=== PATIENT | male | born 1995 | race Caucasian/White ===

== ENCOUNTER 2016-12-29 00:53 | Observation (INO) | payer BC ==
[2016-12-29] MEDS ORDERED: ONDANSETRON HCL INJ/PF 4 MG/2 ML SDV IV ONE (01:41)
[2016-12-29] MEDS ORDERED: HYDROCORTISONE SOD SUCCINATE INJ/PF 100 MG/2 ML SDV IV ONE (01:42)
[2016-12-29] MEDS ORDERED: NORMAL SALINE 1000 ML 1,000 ML IV ONE ×2 (01:42→04:37)
--- NOTE | 2016-12-29 01:45 | ER Document Report ---
ED General - General Chief Complaint: Nausea/Vomiting Stated Complaint: VOMITING Time Seen by Provider: 12/29/16 01:36 Notes: Patient is a 21-year-old male who comes emergency department for chief complaint of nausea and vomiting 10-15 times today. He reports mild generalized abdominal pain with persistent nausea. He denies flank pain, fever , hematemesis or hematochezia. He has past medical history of adrenal insufficiency, he is currently visiting from [place]. He takes hydrocortisone 20 mg in the morning, 10 mg in the evening, takes fludrocortisone 0.2 mg every morning. He states he has not been able to take them since yesterday because of the vomiting. He states he has been trying to hydrate in between vomiting but he is worried because he has not stopped. He states he smokes marijuana occasionally, denies any other recreational drugs, denies other medical history. TRAVEL OUTSIDE OF THE [place] IN LAST 30 DAYS: No - Related Data Allergies/Adverse Reactions: Sulfa (Sulfonamide Antibiotics) Allergy (Verified 12/29/16 01:02) Past Medical History - General Information source: Patient - Social History Smoking Status: Never Smoker Drug Abuse: Marijuana Lives with: Family Family History: Reviewed & Not Pertinent Patient has suicidal ideation: No Patient has homicidal ideation: No Endocrine Medical History: Reports: Other - adrenal insufficiency Renal/ Medical History: Denies: Hx Peritoneal Dialysis Surgical Hx: Negative - Immunizations Immunizations up to date: Yes Hx Diphtheria, Pertussis, Tetanus Vaccination: Yes Review of Systems - Review of Systems Constitutional: No symptoms reported EENT: No symptoms reported Cardiovascular: No symptoms reported Respiratory: No symptoms reported Gastrointestinal: See HPI Genitourinary: No symptoms reported Male Genitourinary: No symptoms reported Musculoskeletal: No symptoms reported Skin: No symptoms reported Hematologic/Lymphatic: No symptoms reported Neurological/Psychological: No symptoms reported Physical Exam - Vital signs Vitals: Temp Pulse Resp BP Pulse Ox 98.6 F 72 18 147/84 H 100 12/29/16 00:59 12/29/16 00:59 12/29/16 00:59 12/29/16 00:59 12/29/16 00:59 Interpretation: Normal - General General appearance: Alert, Anxious In distress: Mild - patient vomiting when I entered room; appears tired - HEENT Head: Normocephalic, Atraumatic Eyes: Normal Conjunctiva: Normal Extraocular movements intact: Yes Eyelashes: Normal Pupils: PERRL Mouth/Lips: Normal Mucous membranes: Normal Pharynx: Normal Neck: Normal - Respiratory Respiratory status: No respiratory distress Chest status: Nontender Breath sounds: Normal Chest palpation: Normal - Cardiovascular Rhythm: Regular. No: Tachycardia Heart sounds: Normal auscultation, S1 appreciated, S2 appreciated Murmur: No - Abdominal Inspection: Normal Distension: No distension Bowel sounds: Normal Tenderness: Tender - mild generalized tenderness. No: McBurney's point, Velez' s sign, Guarding Organomegaly: No organomegaly - Back Back: Normal, Nontender. No: Tender, CVA tenderness - Extremities General upper extremity: Normal inspection, Nontender, Normal color, Normal ROM , Normal temperature General lower extremity: Normal inspection, Nontender, Normal color, Normal ROM , Normal temperature, Normal weight bearing. No: Becky's sign - Neurological Neuro grossly intact: Yes Cognition: Normal Orientation: AAOx4 [place] Coma Scale Eye Opening: Spontaneous [place] Coma Scale Verbal: Oriented [place] Coma Scale Motor: Obeys Commands Gladis Coma Scale Total: 15 Speech: Normal Motor strength normal: LUE, RUE, LLE, RLE Sensory: Normal - Psychological Associated symptoms: Normal affect, Normal mood - Skin Skin Temperature: Warm Skin Moisture: Dry Skin Color: Normal Course - Re-evaluation Re-evalutation: Patient does look uncomfortable on initial evaluation, he was vomiting when I entered the room. Generalized mild abdominal tenderness but no guarding or rigidity. No tachycardia, hypotension, or fever. CBC, chemistry, urinalysis are still surprisingly normal in appearance. I asked patient if he uses any recreational drugs, he states he smokes marijuana once or twice a week, denies additional use. Drug screen performed, shows only marijuana. Additional medications will be given. 12/29/16 05:45 Patient has intractable vomiting. He vomited after Zofran, Benadryl, morphine, and after IM Phenergan. I did see patient vomit, he is not gagging. He has been given 2 L of IV fluids. He was given Solu-Cortef. Patient was discussed with Dr. Trevizo before IM phenergan. Recommends admission for adrenal insufficiency history and intractable vomiting. 12/29/16 07:[address] Garsia, patient will be admitted to telemetry observation. - Vital Signs Vital signs: Temp Pulse Resp BP Pulse Ox 98.6 F 72 18 141/67 H 99 12/29/16 00:59 12/29/16 00:59 12/29/16 00:59 12/29/16 06:46 12/29/16 06:46 - Laboratory Result Diagrams: 12/29/16 02:02 12/29/16 02:02 Laboratory results interpreted by me: 12/29/16 12/29/16 02:02 02:08 Chloride 108 H BUN 5 L Urine Ketones TRACE H Discharge - Discharge Clinical Impression: Intractable vomiting Qualifiers: Vomiting type: unspecified Nausea presence: with nausea Qualified Code(s): R11.2 - Nausea with vomiting, unspecified Abdominal pain Qualifiers: Abdominal location: generalized Qualified Code(s): R10.84 - Generalized abdominal pain Condition: Stable Disposition: ADMITTED OBSERVATION Admitting Provider: Hospitalist Unit Admitted: Telemetry
[2016-12-29 02:16] LABS: ABSOLUTE EOSINOPHILS # (AUTO) 0.1 10^3/uL (0.0-0.6); ABSOLUTE LYMPHOCYTES (AUTO) 3.7 10^3/uL (0.5-4.7); ABSOLUTE MONOCYTES (AUTO) 0.9 10^3/uL (0.1-1.4); ABSOLUTE NEUT (AUTO) 4.6 10^3/uL (1.7-8.2); BASOPHILS % (AUTO) 0.5 % (0-2); EOSINOPHILS % (AUTO) 1.5 % (0-6); HEMATOCRIT 40.9 % (37.9-51.0); HGB HCT DIFFERENCE 1.1; LYMPHOCYTES % (AUTO) 39.7 % (13-45); MEAN CORPUSCULAR HEMOGLOBIN 29.2 pg (27.0-33.4); MEAN CORPUSCULAR HGB CONC 34.2 g/dL (32.0-36.0); MEAN CORPUSCULAR VOLUME 85 fl (80-97); MONOCYTES % (AUTO) 9.1 % (3-13); RED BLOOD COUNT 4.79 10^6/uL (4.35-5.55); RED CELL DISTRIBUTION WIDTH 13.5 % (11.5-14.0); SEGMENTED NEUTROPHILS % (AUTO) 49.2 % (42-78); WHITE BLOOD COUNT 9.4 10^3/uL (4.0-10.5)
[2016-12-29 02:26] LABS: ALANINE AMINOTRANSFERASE 22 U/L (21-72); ALBUMIN 4.5 g/dL (3.5-5.0); ALKALINE PHOSPHATASE 79 U/L (38-126); ANION GAP 12 (5-19); ASPARTATE AMINO TRANSFERASE 19 U/L (17-59); BILIRUBIN,DIRECT 0.4 mg/dL (0.0-0.4); BLOOD UREA NITROGEN 5 mg/dL (7-20); CALCIUM 9.5 mg/dL (8.4-10.2); CARBON DIOXIDE 22 mmol/L (22-30); CHLORIDE 108 mmol/L (98-107); CREATININE RESULT 0.73 mg/dL (0.52-1.25); GLUCOSE 92 mg/dL (75-110); POTASSIUM 3.8 mmol/L (3.6-5.0); SODIUM 142.3 mmol/L (137-145); TOTAL PROTEIN 7.6 g/dL (6.3-8.2)
[2016-12-29 02:36] LABS: APPEARANCE,URINE CLEAR; BILIRUBIN,URINE NEGATIVE (NEGATIVE); GLUCOSE, URINE NEGATIVE (NEGATIVE); KETONES,URINE TRACE mg/dL (NEGATIVE); LEUKOCYTE ESTERASE,URINE NEGATIVE (NEGATIVE); NITRITE,URINE NEGATIVE (NEGATIVE); PROTEIN,URINE NEGATIVE (NEGATIVE); URINE SPECIFIC GRAVITY 1.012; UROBILINOGEN,URINE NEGATIVE mg/dL (<2.0)
[2016-12-29] MEDS ORDERED: MORPHINE SULFATE 10 MG/ML INJ IV ONE (02:37)
[2016-12-29] MEDS ORDERED: DIPHENHYDRAMINE HCL 50 MG/ML VIAL IV ONE (03:48)
[2016-12-29 04:31] LABS: URINE BARBITURATES SCREEN NEGATIVE; URINE METHADONE SCREEN NEGATIVE; URINE OPIATES LOW NEGATIVE; URINE PHENCYCLIDINE SCREEN NEGATIVE
[2016-12-29] MEDS ORDERED: PROMETHAZINE HCL INJ 25 MG/1 ML VIAL IM ONE (04:40)
[2016-12-29] MEDS ORDERED: ONDANSETRON HCL INJ/PF 4 MG/2 ML SDV IV PRN (07:46)
[2016-12-29] MEDS: ONDANSETRON HCL INJ/PF 4 MG/2 ML SDV IV PRN ×2 (08:46→14:34)
[2016-12-29] MEDS ORDERED: SCOPOLAMINE HYDROBROMIDE 1.5 MG PATCH.TD72 TD ONE (09:00)
[2016-12-29] MEDS ORDERED: ENOXAPARIN SODIUM INJ 40 MG/0.4 ML DISP.SYRIN SUBCUT SCH (10:00)
[2016-12-29] MEDS ORDERED: KETOROLAC TROMETHAMINE INJ/PF 30 MG/1 ML SDV IV PRN (10:16)
[2016-12-29] MEDS ORDERED: LIDOCAINE 2% VISCOUS SOLN 20 ML UDCUP PO ONE ×2 (11:00→15:14)
[2016-12-29] MEDS ORDERED: MAG HYDROX/AL HYDROX/SIMETH SUSP 30 ML UDCUP PO ONE ×2 (11:00→15:14)
[2016-12-29] MEDS ORDERED: METOCLOPRAMIDE HCL ORAL SOLN 10 MG/10 ML UDCUP PO ONE ×2 (11:00→15:14)
[2016-12-29 11:22] VITALS: BP 136/72
--- NOTE | 2016-12-29 14:19 | RADIOLOGY REPORT (SQ) ---
EXAM DESCRIPTION: CT ABD/PELVIS NO ORAL OR IV COMPLETED DATE/TIME: 12/29/2016 1:59 pm REASON FOR STUDY: Intractable pain COMPARISON: None. TECHNIQUE: CT scan of the abdomen and pelvis performed without intravenous or oral contrast. Images reviewed with lung, soft tissue, and bone windows. Reconstructed coronal and sagittal MPR images revi ewed. All images stored on PACS. All CT scanners at this facility use dose modulation, iterative reconstruction, and/or weight based d osing when appropriate to reduce radiation dose to as low as reasonably achievable (ALARA). [facility]: Dose Right [facility]: CareDose [facility]: Dose Right [facility]: Teradose 4D [facility]: Smart Localmint RADIATION DOSE: Up-to-date CT equipment and radiation dose reduction techniques were employed. CTDIv ol: 3.9 mGy. DLP: 210 mGy-cm.mGy. LIMITATIONS: None. FINDINGS: LOWER CHEST: No significant findings. No nodules or infiltrates. NON-CONTRASTED LIVER, SPLEEN, ADRENALS: Evaluation limited by lack of IV contrast. No identified sign ificant masses. Adrenal glands are mildly diffusely enlarged, without focal nodules. Patient has a history of adrenal insufficiency. PANCREAS: No masses. No peripancreatic inflammatory changes. GALLBLADDER: No identified stones by CT criteria. No inflammatory changes to suggest cholecystitis. RIGHT KIDNEY AND URETER: No suspicious masses. Assessment limited by lack of IV contrast. No signif icant calcifications. No hydronephrosis or hydroureter. LEFT KIDNEY AND URETER: No suspicious masses. Assessment limited by lack of IV contrast. No signifi cant calcifications. No hydronephrosis or hydroureter. AORTA AND RETROPERITONEUM: No aneurysm. No retroperitoneal masses or adenopathy. BOWEL AND PERITONEAL CAVITY: No obvious masses or inflammatory changes. No free fluid. APPENDIX: Normal. PELVIS, BLADDER, AND ABDOMINAL WALL:No abnormal masses. No free fluid. Bladder normal. BONES: No significant findings. OTHER: Results discussed with Stephen Garsia IMPRESSION: NO SIGNIFICANT OR ACUTE PROCESS IN THE ABDOMEN OR PELVIS. TECHNICAL DOCUMENTATION: JOB ID: [id number] Quality ID # [id number]: Final reports with documentation of one or more dose reduction techniques (e.g., Au tomated exposure control, adjustment of the mA and/or kV according to patient size, use of iterative reconstruction technique) 2010 [employer]- All Rights Reserved
--- NOTE | 2016-12-29 16:49 | H&P/Discharge Summary ---
Discharge Summary Admission Date/PCP: 12/29/16 07:46 Discharge Date: 12/29/16 Resuscitation Status: Full Code - Discharge Diagnosis (1) Nausea & vomiting Is this a current diagnosis for this admission?: Yes (2) Adrenal insufficiency Is this a current diagnosis for this admission?: Yes (3) Marijuana abuse Is this a current diagnosis for this admission?: Yes (4) Suboxone Use Is this a current diagnosis for this admission?: Yes Allergies/Adverse Reactions: Sulfa (Sulfonamide Antibiotics) Allergy (Verified 12/29/16 01:02) Discharge Diet: As Tolerated Discharge Activity: Activity As Tolerated History of Present Illness Admission Date/PCP: 12/29/16 07:46 History of Present Illness: SO STEELE is a 21 year old male who presented to the emergency department for chief complaint of nausea and vomiting 10-15 times today. The patient noted mild generalized abdominal pain with persistent nausea. The patient denies flank pain, fever, hematemesis or hematochezia. The patient has past medical history of adrenal insufficiency, he has relocated from [place]. The patient stated that he has been trying to hydrate in between vomiting but he is worried because he has not stopped. He states he smokes marijuana. HOSPITAL COURSE: [facility] of the abdomen and pelvis was unremarkable. The patient was given a GI cocktail and was found sleeping afterwards. When awakened the patient stated his pain was unbearable. The patient was cordial however when in conversation. When distracted the patient is in no distress. The patient stated that he had had a previous hospital visit in [place] when he had a complete work up including EGD. The patient stated that he has these bouts of vomiting and no one can determine the source. The patient is defensive when suggested marijuana may be contributing. I made it clear that the patient's labs, vital signs, were not reflective of 24 -48 hours of relentless vomiting. The patient is agreeable to discharge and instructed to refrain from substances. Past Medical History Endocrine Medical History: Reports: Other - Adrenal insufficiency GI Medical History: Reports: Other - Previous admission for nausea and vomiting Past Surgical History Past Surgical History: Reports: Other - EGD in 2017-Unremarkable Social History Information Source: Patient Occupation: Works at [employer] Lives with: Family Smoking Status: Current Every Day Smoker Cigarettes Packs Per Day: 1 Number of Years Smokin Last Time Smoked: 12/29/2016 Frequency of Alcohol Use: Occasional Hx Recreational Drug Use: Yes Drugs: Marijuana Hx Prescription Drug Abuse: Yes - Opiates/Suboxone - Advance Directive Resuscitation Status: Full Code Surrogate healthcare decision maker:: Father Family History Family History: Reviewed & Not Pertinent Parental Family History Reviewed: Yes Children Family History Reviewed: NA Sibling(s) Family History Reviewed.: NA Review of Systems Constitutional: ABSENT: chills, fever(s), headache(s), weight gain, weight loss Eyes: ABSENT: visual disturbances Ears: ABSENT: hearing changes Cardiovascular: ABSENT: chest pain, dyspnea on exertion, edema, orthropnea, palpitations Respiratory: ABSENT: cough, hemoptysis Gastrointestinal: PRESENT: abdominal pain, nausea, vomiting. ABSENT: constipation, diarrhea, hematemesis, hematochezia, melena Genitourinary: ABSENT: dysuria, hematuria Musculoskeletal: ABSENT: joint swelling Integumentary: ABSENT: rash, wounds Neurological: ABSENT: abnormal gait, abnormal speech, confusion, dizziness, focal weakness, syncope Psychiatric: ABSENT: anxiety, depression, homidical ideation, suicidal ideation Endocrine: ABSENT: cold intolerance, heat intolerance, polydipsia, polyuria Hematologic/Lymphatic: ABSENT: easy bleeding, easy bruising Physical Exam Vital Signs: Temp Pulse Resp BP Pulse Ox 98.8 F 108 H 16 136/72 H 99 12/29/16 14:00 12/29/16 14:00 12/29/16 14:00 12/29/16 14:00 12/29/16 14:00 Intake & Output 12/27/16 12/28/16 12/29/16 23:59 23:59 23:59 Intake Total 145 Output Total 0 Balance 145 Weight 72.575 kg General appearance: PRESENT: no acute distress, well-developed, well-nourished Head exam: PRESENT: atraumatic, normocephalic Eye exam: PRESENT: conjunctiva pink, EOMI, PERRLA. ABSENT: scleral icterus Ear exam: PRESENT: normal external ear exam Mouth exam: PRESENT: moist, tongue midline Neck exam: ABSENT: carotid bruit, JVD, lymphadenopathy, thyromegaly Respiratory exam: PRESENT: clear to auscultation jef. ABSENT: rales, rhonchi, wheezes Cardiovascular exam: PRESENT: RRR. ABSENT: diastolic murmur, rubs, systolic murmur Pulses: PRESENT: normal dorsalis pedis pul Vascular exam: PRESENT: normal capillary refill GI/Abdominal exam: PRESENT: normal bowel sounds, soft. ABSENT: distended, guarding, mass, organolmegaly, rebound, tenderness Rectal exam: PRESENT: deferred Extremities exam: PRESENT: full ROM. ABSENT: calf tenderness, clubbing, pedal edema Neurological exam: PRESENT: alert, awake, oriented to person, oriented to place , oriented to time, oriented to situation, CN II-XII grossly intact. ABSENT: motor sensory deficit Psychiatric exam: PRESENT: appropriate affect, normal mood. ABSENT: homicidal ideation, suicidal ideation Skin exam: PRESENT: dry, intact, warm. ABSENT: cyanosis, rash Results Laboratory Results: Labs- Last Values WBC 9.4 10^3/uL (4.0-10.5) 12/29/16 02:02 RBC 4.79 10^6/uL (4.35-5.55) 12/29/16 02:02 Hgb 14.0 g/dL (13.5-17.0) 12/29/16 02:02 Hct 40.9 % (37.9-51.0) 12/29/16 02:02 MCV 85 fl (80-97) 12/29/16 02:02 MCH 29.2 pg (27.0-33.4) 12/29/16 02:02 MCHC 34.2 g/dL (32.0-36.0) 12/29/16 02:02 RDW 13.5 % (11.5-14.0) 12/29/16 02:02 Plt Count 217 10^3/uL (150-450) 12/29/16 02:02 Seg Neutrophils % 49.2 % (42-78) 12/29/16 02:02 Lymphocytes % 39.7 % (13-45) 12/29/16 02:02 Monocytes % 9.1 % (3-13) 12/29/16 02:02 Eosinophils % 1.5 % (0-6) 12/29/16 02:02 Basophils % 0.5 % (0-2) 12/29/16 02:02 Absolute Neutrophils 4.6 10^3/uL (1.7-8.2) 12/29/16 02:02 Absolute Lymphocytes 3.7 10^3/uL (0.5-4.7) 12/29/16 02:02 Absolute Monocytes 0.9 10^3/uL (0.1-1.4) 12/29/16 02:02 Absolute Eosinophils 0.1 10^3/uL (0.0-0.6) 12/29/16 02:02 Absolute Basophils 0.0 10^3/uL (0.0-0.2) 12/29/16 02:02 Sodium 142.3 mmol/L (137-145) 12/29/16 02:02 Potassium 3.8 mmol/L (3.6-5.0) 12/29/16 02:02 Chloride 108 mmol/L (98-107) H 12/29/16 02:02 Carbon Dioxide 22 mmol/L (22-30) 12/29/16 02:02 Anion Gap 12 (5-19) 12/29/16 02:02 BUN 5 mg/dL (7-20) L 12/29/16 02:02 Creatinine 0.73 mg/dL (0.52-1.25) 12/29/16 02:02 Est GFR ( Amer) > 60 (>60) 12/29/16 02:02 Est GFR (Non-Af Amer) > 60 (>60) 12/29/16 02:02 Glucose 92 mg/dL (75-110) 12/29/16 02:02 Calcium 9.5 mg/dL (8.4-10.2) 12/29/16 02:02 Total Bilirubin 1.0 mg/dL (0.2-1.3) 12/29/16 02:02 Direct Bilirubin 0.4 mg/dL (0.0-0.4) 12/29/16 02:02 Indirect Bilirubin Not Reportable 12/29/16 02:02 Neonat Total Bilirubin Not Reportable 12/29/16 02:02 AST 19 U/L (17-59) 12/29/16 02:02 ALT 22 U/L (21-72) 12/29/16 02:02 Alkaline Phosphatase 79 U/L (38-126) 12/29/16 02:02 Total Protein 7.6 g/dL (6.3-8.2) 12/29/16 02:02 Albumin 4.5 g/dL (3.5-5.0) 12/29/16 02:02 Lipase 70.0 U/L (23-300) 12/29/16 02:02 Urine Color YELLOW 12/29/16 02:08 Urine Appearance CLEAR 12/29/16 02:08 Urine pH 7.0 (5.0-9.0) 12/29/16 02:08 Ur Specific [place] 1.012 12/29/16 02:08 Urine Protein NEGATIVE mg/dL (NEGATIVE) 12/29/16 02:08 Urine Glucose (UA) NEGATIVE mg/dL (NEGATIVE) 12/29/16 02:08 Urine Ketones TRACE mg/dL (NEGATIVE) H 12/29/16 02:08 Urine Blood NEGATIVE (NEGATIVE) 12/29/16 02:08 Urine Nitrite NEGATIVE (NEGATIVE) 12/29/16 02:08 Urine Bilirubin NEGATIVE (NEGATIVE) 12/29/16 02:08 Urine Urobilinogen NEGATIVE mg/dL (<2.0) 12/29/16 02:08 Ur Leukocyte Esterase NEGATIVE (NEGATIVE) 12/29/16 02:08 Urine WBC (Auto) 0 /HPF 12/29/16 02:08 Urine RBC (Auto) 0 /HPF 12/29/16 02:08 Urine Mucus (Auto) RARE /LPF 12/29/16 02:08 Urine Ascorbic Acid NEGATIVE (NEGATIVE) 12/29/16 02:08 Urine Opiates Screen NEGATIVE 12/29/16 02:08 Urine Methadone Screen NEGATIVE 12/29/16 02:08 Ur Barbiturates Screen NEGATIVE 12/29/16 02:08 Ur Phencyclidine Scrn NEGATIVE 12/29/16 02:08 Ur Amphetamines Screen NEGATIVE 12/29/16 02:08 U Benzodiazepines Scrn NEGATIVE 12/29/16 02:08 Urine Cocaine Screen NEGATIVE 12/29/16 02:08 U Marijuana (THC) Screen UNCONFIRMED POSITIVE 12/29/16 02:08 Impressions: Abdomen/Pelvis CT 12/29/16 00:00 IMPRESSION: NO SIGNIFICANT OR ACUTE PROCESS IN THE ABDOMEN OR PELVIS. Qualifiers PATEINT BEING DISCHARGED WITH ANY OF THE FOLLOWING DIAGNOSIS?: No Assessment & Plan - Time Time Spent: 50 to 70 Minutes Smoking Education Provided: Over 3 minutes Medications reviewed and adjusted accordingly: Yes Anticipated dischagre: Home - Plan Summary Plan Summary: The patient will be referred to GI for further work-up and evaluation.
== END 2016-12-29 17:39 | disposition home or self-care (01) ==
LOC: ER 00:53 → EH 07:46 → UNDOADMOB 07:52 → EH 07:52 → 4W 09:20
PROVIDERS: ADMIT Family Medicine; ATTEND Family Medicine
PROC: HZ31ZZZ Individual Counseling for Substance Abuse Treatment, Behavioral (ICD-10-PCS; principal; 2016-12-29)
DX: R11.2 Nausea with vomiting, unspecified (principal); E27.40 Unspecified adrenocortical insufficiency; F12.10 Cannabis abuse, uncomplicated; R10.84 Generalized abdominal pain; F17.210 Nicotine dependence, cigarettes, uncomplicated; F19.90 Other psychoactive substance use, unspecified, uncomplicated; Z79.52 Long term (current) use of systemic steroids
CPT/HCPCS: 99285; 96372; 96374; 96375; 36415; 83690; 85025; 80053; 81001; 80307; 74176; 99406; G0378 ×2; J1200; J1720; J3490 ×2; J1885; J2270; J1650; J2550; J2405

== ENCOUNTER 2016-12-30 16:47 | Observation (INO) | payer BC ==
[2016-12-30] MEDS ORDERED: ONDANSETRON HCL INJ/PF 4 MG/2 ML SDV IV ONE (18:16)
--- NOTE | 2016-12-30 18:18 | ER Document Report ---
ED Medical Screen (RME) - General Chief Complaint: Nausea/Vomiting Stated Complaint: VOMITING Time Seen by Provider: 12/30/16 18:15 Mode of Arrival: Ambulatory Information source: Patient Notes: Patient was discharged from here yesterday with intractable vomiting. Patient complains of nausea and vomiting for the past 3 days with 15 episodes today. Patient denies any diarrhea or fever. Patient complains of generalized abdominal pain that is worse to the upper epigastric area. hx: adrenal insufficiency TRAVEL OUTSIDE OF THE [place] IN LAST 30 DAYS: No - Related Data Allergies/Adverse Reactions: Sulfa (Sulfonamide Antibiotics) Allergy (Verified 12/30/16 16:56) Past Medical History - Social History Chew tobacco use (# tins/day): No Frequency of alcohol use: Occasional Drug Abuse: Marijuana Renal/ Medical History: Denies: Hx Peritoneal Dialysis Psychiatric Medical History: Denies: Hx Depression Past Surgical History: Reports: Other - EGD in 2017-Unremarkable - Immunizations Immunizations up to date: Yes Hx Diphtheria, Pertussis, Tetanus Vaccination: Yes Physical Exam - Vital signs Vitals: Temp Pulse Resp BP Pulse Ox 99.1 F 58 L 20 138/70 H 99 12/30/16 16:56 12/30/16 16:56 12/30/16 16:56 12/30/16 16:56 12/30/16 16:56 - Abdominal Tenderness: Tender - epigastric Course - Vital Signs Vital signs: Temp Pulse Resp BP Pulse Ox 99.1 F 58 L 20 138/70 H 99 12/30/16 16:56 12/30/16 16:56 12/30/16 16:56 12/30/16 16:56 12/30/16 16:56
[2016-12-30 19:11] LABS: ABSOLUTE EOSINOPHILS # (AUTO) 0.1 10^3/uL (0.0-0.6); ABSOLUTE LYMPHOCYTES (AUTO) 2.7 10^3/uL (0.5-4.7); ABSOLUTE MONOCYTES (AUTO) 0.8 10^3/uL (0.1-1.4); ABSOLUTE NEUT (AUTO) 4.9 10^3/uL (1.7-8.2); BASOPHILS % (AUTO) 0.3 % (0-2); EOSINOPHILS % (AUTO) 0.8 % (0-6); HEMATOCRIT 45.4 % (37.9-51.0); HEMOGLOBIN 15.2 g/dL (13.5-17.0); HGB HCT DIFFERENCE 0.2; LYMPHOCYTES % (AUTO) 31.8 % (13-45); MEAN CORPUSCULAR HEMOGLOBIN 29.3 pg (27.0-33.4); MEAN CORPUSCULAR HGB CONC 33.5 g/dL (32.0-36.0); MEAN CORPUSCULAR VOLUME 87 fl (80-97); RED CELL DISTRIBUTION WIDTH 13.1 % (11.5-14.0); SEGMENTED NEUTROPHILS % (AUTO) 58.1 % (42-78); WHITE BLOOD COUNT 8.4 10^3/uL (4.0-10.5)
[2016-12-30 20:16] LABS: ALANINE AMINOTRANSFERASE 26 U/L (21-72); ALBUMIN 4.6 g/dL (3.5-5.0); ALKALINE PHOSPHATASE 80 U/L (38-126); ANION GAP 16 (5-19); ASPARTATE AMINO TRANSFERASE 29 U/L (17-59); BILIRUBIN,DIRECT 0.5 mg/dL (0.0-0.4); BILIRUBIN,TOTAL 1.4 mg/dL (0.2-1.3); BLOOD UREA NITROGEN 8 mg/dL (7-20); CALCIUM 9.5 mg/dL (8.4-10.2); CARBON DIOXIDE 22 mmol/L (22-30); CHLORIDE 104 mmol/L (98-107); CREATININE RESULT 0.87 mg/dL (0.52-1.25); GLUCOSE 71 mg/dL (75-110); LIPASE 65.3 U/L (23-300); POTASSIUM 4.9 mmol/L (3.6-5.0); SODIUM 141.7 mmol/L (137-145); TOTAL PROTEIN 7.5 g/dL (6.3-8.2)
--- NOTE | 2016-12-30 20:41 | ER Document Report ---
HPI - HPI Pain Level: 4 Notes: Patient is a 21-year-old male with history of adrenal insufficiency and acid reflux who presents the ED complaining of continued nausea, vomiting, and generalized abdominal pain 2 days. Patient states that he was evaluated one and half days ago and was admitted for observation. Patient had a complete workup performed which was unremarkable. Patient states that he was discharged home with Zantac, Zofran, and another medication to help with his symptoms. Patient states that none of that medication helped and is having continued pain and nausea/vomiting twice every 1-2 hours. Denies any melena or hematemesis. Patient states that he does have some epigastric pain as well without any radiation of his abdominal pains. The pain is described as sharp and constant. His last bowel movement was 2 days ago and was normal at that time. Patient states that he is not able to keep any fluids or food down along with his adrenal insufficiency steroid medication. He denies any urinary symptoms. Denies any recent travel, or exposure to sick contacts. Patient does admit to smoking and recreational use of marijuana. Denies any headache, fever, neck pain/stiffness, URI, sore throat, chest pain, palpitations, syncope, cough, shortness of breath, wheeze, dyspnea, diarrhea, urinary retention, dysuria, hematuria, urethral discharge, back pain, or rash. - ROS Notes: REVIEW OF SYSTEMS: CONSTITUTIONAL : Denies fever, chills, or sweats. Denies recent illness. EENT: Denies eye, ear, throat, or mouth pain or symptoms. Denies nasal or sinus congestion or discharge. Denies throat, tongue, or mouth swelling or difficulty swallowing. CARDIOVASCULAR: Denies chest pain. Denies palpitations or racing or irregular heart beat. Denies ankle edema. RESPIRATORY: Denies cough, cold, or chest congestion. Denies shortness of breath, difficulty breathing, or wheezing. GASTROINTESTINAL: see hpi GENITOURINARY: Denies difficulty urinating, painful urination, burning, frequency, blood in urine, or discharge. MUSCULOSKELETAL: Denies back or neck pain or stiffness. Denies joint pain or swelling. SKIN: Denies rash, lesions or sores. NEUROLOGICAL: Denies confusion or altered mental status. Denies passing out or loss of consciousness. Denies dizziness or lightheadedness. Denies headache. Denies weakness or paralysis or loss of use of either side. Denies problems with gait or speech. Denies sensory loss, numbness, or tingling. ALL OTHER SYSTEMS REVIEWED AND NEGATIVE. Dictation was performed using [employer] voice recognition software - DERM Skin Color: Normal Past Medical History - General Information source: Patient - Social History Smoking Status: Current Every Day Smoker Chew tobacco use (# tins/day): No Frequency of alcohol use: Occasional Drug Abuse: Marijuana Family History: Reviewed & Not Pertinent Patient has suicidal ideation: No Patient has homicidal ideation: No Renal/ Medical History: Denies: Hx Peritoneal Dialysis Psychiatric Medical History: Denies: Hx Depression Past Surgical History: Reports: Other - EGD in 2017-Unremarkable - Immunizations Immunizations up to date: Yes Hx Diphtheria, Pertussis, Tetanus Vaccination: Yes Vertical Provider Document - CONSTITUTIONAL Agree With Documented VS: Yes Notes: PHYSICAL EXAMINATION: GENERAL: Well-appearing, well-nourished and in no acute distress. HEAD: Atraumatic, normocephalic. EYES: Pupils equal round and reactive to light, extraocular movements intact, sclera anicteric, conjunctiva are normal. ENT: EAC clear b/l. TM's intact b/l without erythema, fluid, or perforation. Nares patent and without discharge. oropharynx clear without exudates. No tonsilar hypertrophy or erythema. Moist mucous membranes. No sinus tenderness. NECK: Normal range of motion, supple without lymphadenopathy LUNGS: Breath sounds clear to auscultation bilaterally and equal. No wheezes rales or rhonchi. HEART: Regular rate and rhythm without murmurs, rubs, gallops. ABDOMEN/: Soft, nondistended abdomen. No guarding, no rebound. No masses appreciated. Normal bowel sounds present. No CVA tenderness bilaterally. + generalized abd tenderness and in the epigastrum. Psoas stretch/obturator neg. No inguinal adenopathy, hernia, or masses. No testicular/penile tenderness or discharge. no lesions or ulcerations noted. Musculoskeletal: L E's b/l: FROM to passive/active. Strength 5+/5. Extremities: No cyanosis, clubbing, or edema b/l. Peripheral pulses 2+. Capillary refill less than 3 seconds. NEUROLOGICAL: Normal speech, normal gait. Normal sensory, motor exams PSYCH: Normal mood, normal affect. SKIN: Warm, Dry, normal turgor, no rashes or lesions noted. - INFECTION CONTROL TRAVEL OUTSIDE OF THE [place] IN LAST 30 DAYS: No - RESPIRATORY O2 Sat by Pulse Oximetry: 99 Course - Re-evaluation Re-evalutation: 12/31/16 01:08 Patient is an afebrile, well-hydrated, 21-year-old male who presents the ED with intractable nausea and vomiting. CBC, CMP unremarkable. Patient was given 8 mg of Zofran and 50 mg of Toradol which did not help. Patient was visualized vomiting. Patient has been vomiting since his arrival approximately 2 times per hour. 1 L normal saline was given. Consult with Dr. Marin who accepted patient as an inpatient observation with telemetry floor. Care per hospitalist. - Vital Signs Vital signs: Temp Pulse Resp BP Pulse Ox 99.1 F 58 L 20 138/70 H 99 12/30/16 16:56 12/30/16 16:56 12/30/16 16:56 12/30/16 16:56 12/30/16 16:56 - Laboratory Result Diagrams: 12/30/16 18:55 12/30/16 19:54 Laboratory results interpreted by me: 12/30/16 19:54 Glucose 71 L Total Bilirubin 1.4 H Direct Bilirubin 0.5 H Discharge - Discharge Clinical Impression: Intractable nausea and vomiting Qualifiers: Vomiting type: unspecified Qualified Code(s): R11.2 - Nausea with vomiting, unspecified Condition: Stable Disposition: ADMITTED OBSERVATION Admitting Provider: Hospitalist - Dr. Marin Unit Admitted: Telemetry
[2016-12-30] MEDS ORDERED: METOCLOPRAMIDE HCL ORAL SOLN 10 MG/10 ML UDCUP PO ONE (20:43)
[2016-12-30] MEDS ORDERED: MAG HYDROX/AL HYDROX/SIMETH SUSP 30 ML UDCUP PO ONE (20:43)
[2016-12-30] MEDS ORDERED: LIDOCAINE 2% VISCOUS SOLN 20 ML UDCUP PO ONE (20:43)
[2016-12-30] MEDS ORDERED: NORMAL SALINE 1000 ML 1,000 ML IV ONE (23:24)
[2016-12-30] MEDS ORDERED: KETOROLAC TROMETHAMINE INJ/PF 30 MG/1 ML SDV IV ONE (23:24)
[2016-12-31 00:59] LABS: ADD ON TESTING BLD IN LAB ACKNOWLEDGE
[2016-12-31 01:12] LABS: MAGNESIUM 2.3 mg/dL (1.6-2.3)
[2016-12-31] MEDS ORDERED: DEXTROSE 40% GEL 15 GM TUBE PO PRN ×2 (01:25)
[2016-12-31] MEDS ORDERED: DEXTROSE 50%-WATER 25 GM/50 ML DISP.SYRIN IV PRN ×2 (01:25)
[2016-12-31] MEDS ORDERED: GLUCAGON,HUMAN RECOMB 1 MG INJ IM PRN (01:25)
[2016-12-31] MEDS ORDERED: NICOTINE 21 MG/24 HR PATCH.TD24 TD PRN (01:26)
[2016-12-31] MEDS ORDERED: ACETAMINOPHEN 325 MG TABLET PO PRN ×2 (01:26→07:14)
[2016-12-31] MEDS ORDERED: THIAMINE HCL 100 MG in NORMAL SALINE 50 ML IV ONE (01:26)
[2016-12-31] MEDS ORDERED: HYDROCORTISONE SOD SUCCINATE INJ/PF 100 MG/2 ML SDV IV SCH (01:30)
--- NOTE | 2016-12-31 01:50 | PDOC H&P ---
History of Present Illness Admission Date/PCP: 12/31/16 00:22 None Patient complains of: Nausea vomiting and abdominal pain History of Present Illness: SO STEELE is a 21 year old male with underlying adrenal insufficiency, anxiety, pack-a-day smoker, case of beer every 2 weeks, ongoing marijuana use, who presents to the emergency room for the second time in approximately 24 hours for above complaints. Patient has been discussed with emergency room physician who evaluated the patient. Was hospitalized part of the day on the for above complaints. Workup at that time included CT scan of the abdomen and pelvis revealing no significant or acute process. Report noted. Was discharged later that day when he felt better. However, he has continued to note primarily upper epigastric pain, sharp and constant along with a number of episodes of nausea and vomiting, occasionally with small amount of coffee-ground material, although no edilia blood per se. Last bowel movement 2 days ago and was normal. Questionable chills, but no fever. No diarrhea or dysuria. States he was last able to tolerate his oral medications approximately 3 days ago. Has been observed in the emergency room this time to have a number of episodes of nausea and vomiting. Dictation via voice recognition software. Laboratory results are listed in [email or web address] and are reviewed. X-ray summary results are listed below, with full report(s) reviewed. . Social history/personal habits: Single. No children. Works at [employer]. Personal habits as noted above. Allergies/adverse reactions are listed in [email or web address] and are reviewed. Reaction occurred as a child; uncertain specific reaction. Home medications obtained by discussion with patient. REVIEW OF SYSTEMS: Constitutional: See history and present illness. Eyes: No vision complaints. ENT: No swallowing problems or complaints. Denies hearing loss. Pulmonary: No current complaints. Cardiovascular: No current complaints, including chest pain. Gastrointestinal: See history and present illness. Skin: No current complaints, including rashes. Hematologic: Denies easy bruising. Neurologic: No current complaints, including numbness or tingling. Musculoskeletal: No current or chronic joint complaints, such as arthritis. Psychiatric: Anxiety. Endocrine: No current complaints, including polyuria. Genitourinary: No current complaints, including dysuria. PHYSICAL EXAMINATION: 5 feet 8 inches tall. 68.5 kg. BMI 23 kg/m.Temperature 98.6. Pulse 45 and regular. Blood pressure 135/72. Respirations are 18 and unlabored. 100% saturation on room air. Thin otherwise well-developed male appearing approximately his stated age. Pleasant awake alert and cooperative. No obvious distress other than somewhat anxious. Emergency room community health nursing director Stephen is present. Skin is warm and dry. No grossly obvious evidence of rash in areas of skin examined. No subcutaneous nodules palpated. ENT: Hearing grossly normal to normal conversation. Tongue midline on protrusion pink and slightly tacky. Eyes: No scleral icterus. Pupils equal and reactive to light at 4 mm. [place] conjunctivae. Neck is supple and nontender to gentle active range of motion and palpation. Midline trachea. No palpable thyroid nodule mass enlargement or tenderness. Lymphatic: No palpable cervical or clavicular nodes. Neck and lymphatic exams limited by patient body habitus. Psychiatric: Reasonable insight into acute and chronic medical issues. Oriented to time location and why here. Lungs: Auscultation reveals clear and equal breath sounds bilaterally. No use of accessory respiratory muscles. Cardiovascular: Heart regular rate and rhythm, without gallop murmur or rub. No carotid or abdominal aortic bruits. No ankle or pedal edema. Faintly palpable dorsalis pedis pulses. Abdomen:soft nontender with positive bowel sounds. No upper abdominal mass or organomegaly palpated. Extremities: Feet are warm and dry. No calf tenderness to compression. No grossly obvious visual evidence of calf swelling. Gentle manipulation of lower extremities fails to reveal any obvious evidence of injury or instability to knees hips or ankles. Neurologic: Moves upper extremities grossly normally. Patellar reflexes absent. Absent Babinski. Light touch is intact at feet. Dorsiflexion and plantarflexion of feet 5 / 5 and symmetric. Past Medical History Cardiac Medical History: Denies: Atrial Fibrillation, Congestive Heart Failure, Coronary Artery Disease, DVT, Myocardial Infarction, Hyperlipidema, Hypertension, Pulmonary Embolism Pulmonary Medical History: Denies: Asthma, Chronic Obstructive Pulmonary Disease (COPD), Sleep Apnea EENT Medical History: Denies: Eyes, Ears, Throat Neurological Medical History: Denies: Hemorrhagic CVA, Ischemic CVA, Seizures Endocrine Medical History: Reports: Other - Adrenal insufficiency Denies: Diabetes Mellitus Type 1, Diabetes Mellitus Type 2, Hyperthyroidism, Hypothyroidism Renal/ Medical History: Reports: None GI Medical History: Denies: Cirrhosis, Gastroesophageal Reflux Disease, Hepatitis, Peptic Ulcer Disease Musculoskeltal Medical History: Denies: Arthritis Skin Medical History: Reports: None Psychiatric Medical History: Reports: Alcohol Dependency, General Anxiety Disorder, Substance Abuse - Marijuana; reported history of Suboxone use., Tobacco Dependency Denies: Depression Hematology: Reports: None Infectious Medical History: Denies: Hepatitis B, Hepatitis C Past Surgical History Past Surgical History: Reports: Orthopedic Surgery - Knee surgery, Other - EGD in 2017-Unremarkable Social History Information Source: Patient, Emergency Med Personnel, [facility] Smoking Status: Current Every Day Smoker Frequency of Alcohol Use: Social - Case of beer every 2-3 weeks Hx Recreational Drug Use: Yes - History of Suboxone use Drugs: Marijuana Hx Prescription Drug Abuse: Yes - Opiates/Suboxone - Advance Directive Resuscitation Status: Full Code Surrogate healthcare decision maker:: Father Family History Family History: Reviewed & Not Pertinent Parental Family History Reviewed: Yes - Mother diabetic. Father healthy. Children Family History Reviewed: NA Sibling(s) Family History Reviewed.: Yes - Sister is "handicapped" could be no more specific than this. Medication/Allergy Home Medications: Fludrocortisone Acetate 0.2 mg PO QAM 12/31/16 Hydrocortisone 10 mg PO QPM 12/31/16 Hydrocortisone 20 mg PO QAM 12/31/16 Quetiapine Fumarate [Seroquel 100 mg Tablet] 100 mg PO QHS 12/31/16 Allergies/Adverse Reactions: Sulfa (Sulfonamide Antibiotics) Allergy (Verified 12/30/16 16:56) Physical Exam Vital Signs: Temp Pulse Resp BP Pulse Ox 98.6 F 45 L 18 135/72 H 100 12/31/16 01:15 12/31/16 01:15 12/31/16 01:15 12/31/16 01:15 12/31/16 01:15 Assessment & Plan - Diagnosis (1) Elevated LFTs Is this a current diagnosis for this admission?: YesPlan: Possibly due to an element of dehydration. Follow-up hepatic panel. (2) Nausea & vomiting Qualifiers: Vomiting type: unspecified Vomiting Intractability: non-intractable Qualified Code(s): R11.2 - Nausea with vomiting, unspecified Is this a current diagnosis for this admission?: YesPlan: IV fluids. Parenteral Phenergan. Ice chips only for the present time. I have strongly encouraged patient to be careful getting out of bed, to avoid a fall with injury. Knee high SCDs for DVT prophylaxis, along with subcutaneous Lovenox. Impression and plans were discussed with patient who concurs. Time spent in evaluation and management of patient: 65 minutes. (3) Adrenal insufficiency Is this a current diagnosis for this admission?: YesPlan: Solu-Cortef until able to tolerate hydrocortisone. (4) Marijuana abuse Is this a current diagnosis for this admission?: Yes (5) Alcohol use Is this a current diagnosis for this admission?: YesPlan: Observe closely for signs of alcohol withdrawal; none at present. Daily multivitamin, thiamine, and folic acid. (6) Tobacco dependency Is this a current diagnosis for this admission?: YesPlan: As needed nicotine patch.
[2016-12-31] MEDS: HYDROCORTISONE SOD SUCCINATE INJ/PF 100 MG/2 ML SDV IV SCH ×3 (02:09→22:53)
[2016-12-31] MEDS: PROMETHAZINE HCL INJ 25 MG/1 ML VIAL IV PRN ×2 (02:09→08:42)
[2016-12-31] MEDS: NORMAL SALINE 1000 ML 1,000 ML IV PRN ×2 (02:10→08:43)
[2016-12-31] MEDS ORDERED: THIAMINE HCL INJ 200 MG/2 ML VIAL ONE (02:29)
[2016-12-31] MEDS ORDERED: ACETAMINOPHEN 650 MG SUPP.RECT PR ONE (06:40)
[2016-12-31] MEDS ORDERED: ACETAMINOPHEN 650 MG SUPP.RECT PR PRN (07:13)
[2016-12-31 07:31] LABS: ALANINE AMINOTRANSFERASE 24 U/L (21-72); ALBUMIN 4.4 g/dL (3.5-5.0); ALKALINE PHOSPHATASE 80 U/L (38-126); ANION GAP 17 (5-19); ASPARTATE AMINO TRANSFERASE 22 U/L (17-59); BILIRUBIN,DIRECT 0.5 mg/dL (0.0-0.4); BILIRUBIN,TOTAL 1.3 mg/dL (0.2-1.3); BLOOD UREA NITROGEN 8 mg/dL (7-20); CALCIUM 8.9 mg/dL (8.4-10.2); CARBON DIOXIDE 13 mmol/L (22-30); CHLORIDE 108 mmol/L (98-107); CREATININE RESULT 0.79 mg/dL (0.52-1.25); GLUCOSE 84 mg/dL (75-110); POTASSIUM 4.7 mmol/L (3.6-5.0); SODIUM 138.2 mmol/L (137-145)
[2016-12-31 08:21] LABS: APPEARANCE,URINE CLEAR; BILIRUBIN,URINE NEGATIVE (NEGATIVE); GLUCOSE, URINE NEGATIVE (NEGATIVE); KETONES,URINE 80 mg/dL (NEGATIVE); LEUKOCYTE ESTERASE,URINE NEGATIVE (NEGATIVE); NITRITE,URINE NEGATIVE (NEGATIVE); PROTEIN,URINE NEGATIVE (NEGATIVE); UROBILINOGEN,URINE NEGATIVE mg/dL (<2.0)
[2016-12-31] MEDS: FLUDROCORTISONE ACETATE 0.1 MG TABLET PO SCH (08:44)
[2016-12-31] MEDS: HYDROCORTISONE 10 MG TABLET PO SCH ×2 (08:44→17:49)
[2016-12-31] MEDS: THIAMINE HCL 100 MG TABLET PO SCH (08:51)
[2016-12-31] MEDS: ENOXAPARIN SODIUM INJ 40 MG/0.4 ML DISP.SYRIN SUBCUT SCH (08:51)
[2016-12-31] MEDS: FOLIC ACID 1 MG TABLET PO SCH (08:51)
[2016-12-31] MEDS: MULTIVITAMIN TABLET PO SCH (08:51)
[2016-12-31] MEDS ORDERED: ONDANSETRON HCL INJ/PF 4 MG/2 ML SDV IV PRN (09:02)
[2016-12-31] MEDS: FAMOTIDINE INJ/PF 20 MG/2 ML SDV IV SCH ×2 (10:50→22:53)
[2016-12-31] MEDS ORDERED: KETOROLAC TROMETHAMINE INJ/PF 30 MG/1 ML SDV ONE (13:45)
[2016-12-31] MEDS: ONDANSETRON HCL INJ/PF 4 MG/2 ML SDV IV PRN ×2 (17:49→23:07)
[2016-12-31] MEDS ORDERED: QUETIAPINE FUMARATE 100 MG TABLET PO SCH (22:00)
[2016-12-31] MEDS: PANTOPRAZOLE SODIUM 40 MG VIAL IV SCH (22:54)
[2016-12-31] MEDS: DIPHENHYDRAMINE HCL 50 MG/ML VIAL IV PRN (23:07)
[2016-12-31] MEDS: KETOROLAC TROMETHAMINE INJ/PF 30 MG/1 ML SDV IV PRN (23:08)
[2017-01-01] MEDS: ONDANSETRON HCL INJ/PF 4 MG/2 ML SDV IV PRN ×3 (04:45→16:26)
[2017-01-01] MEDS: DIPHENHYDRAMINE HCL 50 MG/ML VIAL IV PRN ×3 (04:53→16:26)
[2017-01-01] MEDS: NORMAL SALINE 1000 ML 1,000 ML IV PRN (05:01)
[2017-01-01] MEDS: HYDROCORTISONE SOD SUCCINATE INJ/PF 100 MG/2 ML SDV IV SCH ×2 (05:01→14:51)
[2017-01-01 05:34] LABS: ANION GAP 17 (5-19); BLOOD UREA NITROGEN 10 mg/dL (7-20); CALCIUM 9.6 mg/dL (8.4-10.2); CARBON DIOXIDE 15 mmol/L (22-30); CHLORIDE 107 mmol/L (98-107); CREATININE RESULT 0.75 mg/dL (0.52-1.25); GLUCOSE 101 mg/dL (75-110); POTASSIUM 4.6 mmol/L (3.6-5.0)
[2017-01-01] MEDS: ENOXAPARIN SODIUM INJ 40 MG/0.4 ML DISP.SYRIN SUBCUT SCH (09:32)
[2017-01-01] MEDS: FOLIC ACID 1 MG TABLET PO SCH (10:22)
[2017-01-01] MEDS: METOCLOPRAMIDE HCL 10 MG TABLET PO SCH ×2 (10:22→16:26)
[2017-01-01] MEDS: MULTIVITAMIN TABLET PO SCH (10:23)
[2017-01-01] MEDS: FLUDROCORTISONE ACETATE 0.1 MG TABLET PO SCH (10:23)
[2017-01-01] MEDS: HYDROCORTISONE 10 MG TABLET PO SCH ×2 (10:23→17:49)
[2017-01-01] MEDS: THIAMINE HCL 100 MG TABLET PO SCH (10:24)
[2017-01-01] MEDS: KETOROLAC TROMETHAMINE INJ/PF 30 MG/1 ML SDV IV PRN ×2 (10:24→16:26)
[2017-01-01] MEDS: FAMOTIDINE INJ/PF 20 MG/2 ML SDV IV SCH (10:26)
[2017-01-01] MEDS: PANTOPRAZOLE SODIUM 40 MG VIAL IV SCH (10:26)
[2017-01-01] MEDS ORDERED: SODIUM BICARBONATE 650 MG TABLET PO ONE (11:30)
--- NOTE | 2017-01-01 14:02 | PDOC PROGRESS REPORT ---
Subjective Progress Note for:: 12/31/16 Subjective:: Patient seen on morning rounds. He is complaining of vomiting and epigastric pain. He was here for the same thing and discharged 24 hrs prior with an unremarkable workup. He does have a history of adrenal insufficiency and states he has been unable to keep medications down. He states he has a history of vomiting with a negative workup. He had an EGD a year ago that he reports as negative. He recently relocated to this area from [place]. Physical Exam Vital Signs: Temp Pulse Resp BP Pulse Ox 98.6 F 56 L 12 129/65 H 100 12/31/16 11:48 12/31/16 11:48 12/31/16 11:48 12/31/16 11:48 12/31/16 11:48 Intake & Output 12/30/16 12/31/16 01/01/17 06:59 06:59 06:59 Intake Total 695 Output Total 150 Balance 545 Weight 68.5 kg General appearance: PRESENT: no acute distress, thin, well-developed, well- nourished Head exam: PRESENT: atraumatic, normocephalic Eye exam: PRESENT: conjunctiva pink, EOMI, PERRLA. ABSENT: scleral icterus Ear exam: PRESENT: normal external ear exam Mouth exam: PRESENT: moist, tongue midline Neck exam: ABSENT: carotid bruit, JVD, lymphadenopathy, thyromegaly Respiratory exam: PRESENT: clear to auscultation jef. ABSENT: rales, rhonchi, wheezes Cardiovascular exam: PRESENT: RRR. ABSENT: diastolic murmur, rubs, systolic murmur Pulses: PRESENT: normal dorsalis pedis pul Vascular exam: PRESENT: normal capillary refill GI/Abdominal exam: PRESENT: normal bowel sounds, soft. ABSENT: distended, guarding, mass, organolmegaly, rebound, tenderness Rectal exam: PRESENT: deferred Extremities exam: PRESENT: full ROM. ABSENT: calf tenderness, clubbing, pedal edema Musculoskeletal exam: PRESENT: ambulatory Neurological exam: PRESENT: alert, awake, oriented to person, oriented to place , oriented to time, oriented to situation, CN II-XII grossly intact. ABSENT: motor sensory deficit Psychiatric exam: PRESENT: appropriate affect, normal mood. ABSENT: homicidal ideation, suicidal ideation Skin exam: PRESENT: dry, intact, warm. ABSENT: cyanosis, rash Results Laboratory Results: 12/31/16 06:53 12/31/16 12/31/16 06:53 08:05 Sodium 138.2 Potassium 4.7 Chloride 108 H Carbon Dioxide 13 L Anion Gap 17 BUN 8 Creatinine 0.79 Est GFR ( Amer) > 60 Est GFR (Non-Af Amer) > 60 Glucose 84 Calcium 8.9 Total Bilirubin 1.3 AST 22 ALT 24 Alkaline Phosphatase 80 Total Protein 7.0 Albumin 4.4 Urine Color YELLOW Urine Appearance CLEAR Urine pH 5.0 Ur Specific [place] 1.020 Urine Protein NEGATIVE Urine Glucose (UA) NEGATIVE Urine Ketones 80 H Urine Blood LARGE H Urine Nitrite NEGATIVE Ur Leukocyte Esterase NEGATIVE Urine WBC (Auto) 1 Urine RBC (Auto) 54 Assessment & Plan - Diagnosis (1) Intractable nausea and vomiting Qualifiers: Vomiting type: unspecified Qualified Code(s): R11.2 - Nausea with vomiting, unspecified (2) Adrenal insufficiency Is this a current diagnosis for this admission?: Yes (3) Marijuana abuse Is this a current diagnosis for this admission?: Yes (4) Tobacco dependency Is this a current diagnosis for this admission?: Yes
--- NOTE | 2017-01-01 14:07 | PDOC PROGRESS REPORT ---
Subjective Progress Note for:: 01/01/17 Subjective:: Patient seen on morning rounds. He is complaining of vomiting and epigastric pain. He was here for the same thing and discharged 24 hrs prior with an unremarkable workup. He does have a history of adrenal insufficiency and states he has been unable to keep medications down. He states he has a history of vomiting with a negative workup. He had an EGD a year ago that he reports as negative. He recently relocated to this area from [place]. It was noted he does have past history of being on suboxone a year ago in [place]. Physical Exam Vital Signs: Temp Pulse Resp BP Pulse Ox 98.6 F 138 H 18 115/61 100 01/01/17 12:03 01/01/17 12:03 01/01/17 12:03 01/01/17 12:03 01/01/17 12:03 Intake & Output 12/31/16 01/01/17 01/02/17 06:59 06:59 06:59 Intake Total 695 1930 Output Total 150 200 Balance 545 1730 Weight 68.5 kg General appearance: PRESENT: no acute distress, thin, well-developed, well- nourished Head exam: PRESENT: atraumatic, normocephalic Eye exam: PRESENT: conjunctiva pink, EOMI, PERRLA. ABSENT: scleral icterus Ear exam: PRESENT: normal external ear exam Mouth exam: PRESENT: moist, tongue midline Neck exam: ABSENT: carotid bruit, JVD, lymphadenopathy, thyromegaly Respiratory exam: PRESENT: clear to auscultation jef. ABSENT: rales, rhonchi, wheezes Cardiovascular exam: PRESENT: RRR. ABSENT: diastolic murmur, rubs, systolic murmur Pulses: PRESENT: normal dorsalis pedis pul Vascular exam: PRESENT: normal capillary refill GI/Abdominal exam: PRESENT: normal bowel sounds, soft, tenderness - mild epigastric tenderness. ABSENT: distended, guarding, mass, organolmegaly, rebound Rectal exam: PRESENT: deferred Extremities exam: PRESENT: full ROM. ABSENT: calf tenderness, clubbing, pedal edema Neurological exam: PRESENT: alert, awake, oriented to person, oriented to place , oriented to time, oriented to situation, CN II-XII grossly intact. ABSENT: motor sensory deficit Psychiatric exam: PRESENT: appropriate affect, normal mood. ABSENT: homicidal ideation, suicidal ideation Skin exam: PRESENT: dry, intact, warm. ABSENT: cyanosis, rash Results Laboratory Results: 01/01/17 05:07 01/01/17 05:07 Sodium 139.0 Potassium 4.6 Chloride 107 Carbon Dioxide 15 L Anion Gap 17 BUN 10 Creatinine 0.75 Est GFR ( Amer) > 60 Est GFR (Non-Af Amer) > 60 Glucose 101 Calcium 9.6 Assessment & Plan - Diagnosis (1) Intractable nausea and vomiting Qualifiers: Vomiting type: unspecified Qualified Code(s): R11.2 - Nausea with vomiting, unspecified Plan: Patient is being hydrated with IV fluids, which he keeps disconnecting himself. Prn zofran, benadryl, protonix and pepcid. He is tolerating some clear liquids. Discussed cyclic vomiting with pituitary-adrenal syndrom, marijuana use. He can follow up with GI as an outpatient. Plan for discharge most likely tomorrow (2) Adrenal insufficiency Is this a current diagnosis for this admission?: YesPlan: Continue IV hydrocortione. Check cortisone levels in the am (3) Marijuana abuse Is this a current diagnosis for this admission?: YesPlan: Counseled (4) Tobacco dependency Is this a current diagnosis for this admission?: YesPlan: Counseled - Time Time Spent with patient: 25-34 minutes Critical Time spent with patient: 15-24 minutes Smoking Cessation Education: 3 to 10 minutes Medications reviewed and adjusted accordingly: Yes Anticipated discharge: Home Within: within 24 hours
--- NOTE | 2017-01-01 16:57 | PDOC DISCHARGE SUMMARY ---
General - Admit/Disc Date/PCP Admission Date/Primary Care Provider: 12/31/16 01:28 Discharge Date: 01/01/17 - Discharge Diagnosis (2) Nausea & vomiting Is this a current diagnosis for this admission?: Yes (3) Adrenal insufficiency Is this a current diagnosis for this admission?: Yes (4) Alcohol use Is this a current diagnosis for this admission?: Yes (5) Marijuana abuse Is this a current diagnosis for this admission?: Yes (6) Tobacco dependency Is this a current diagnosis for this admission?: Yes - Additional Information Resuscitation Status: Full Code Discharge Diet: Regular Discharge Activity: Activity As Tolerated Home Medications: Hydrocortisone 20 mg PO QAM 12/31/16 Quetiapine Fumarate [Seroquel 100 mg Tablet] 100 mg PO QHS 12/31/16 Fludrocortisone Acetate 0.2 mg PO QAM #60 tablet 01/01/17 Hydrocortisone 10 mg PO QPM #90 tablet 01/01/17 Lansoprazole [Prevacid] 30 mg PO DAILY #30 capsule. 01/01/17 Metoclopramide HCl [Reglan 10 mg Tablet] 10 mg PO ACHS #120 tablet 01/01/17 History of Present Illness Patient complains of: Nausea/vomiting, abdominal pain History of Present Illness: SO STEELE is a 21 year old male with underlying adrenal insufficiency, anxiety, pack-a-day smoker, case of beer every 2 weeks, ongoing marijuana use, who presents to the emergency room for the second time in approximately 24 hours for above complaints. Patient has been discussed with emergency room physician who evaluated the patient. Was hospitalized part of the day on the for above complaints. Workup at that time included CT scan of the abdomen and pelvis revealing no significant or acute process. Report noted. Was discharged later that day when he felt better. However, he has continued to note primarily upper epigastric pain, sharp and constant along with a number of episodes of nausea and vomiting, occasionally with small amount of coffee-ground material, although no edilia blood per se. Last bowel movement 2 days ago and was normal. Questionable chills, but no fever. No diarrhea or dysuria. States he was last able to tolerate his oral medications approximately 3 days ago. Has been observed in the emergency room this time to have a number of episodes of nausea and vomiting. Of note patient has also been in a Suboxone clinic within the past year prior to moving to this area from [place]. During his last admission he was very focused on obtaining opiate pain medications. Hospital Course Hospital Course: Patient has recurrent abdominal pain, nausea, vomiting. He has exhibited drug- seeking behavior while in the hospital this time and last time. He was apparently in a Suboxone clinic in [place] prior to moving to this area. CT scan of the abdomen pelvis was negative. He was stable during this admission. He is discharged on Prevacid and Reglan. He is advised to discontinue alcohol, discontinue tobacco, discontinue marijuana use. We will arrange follow-up appointment with Dr. Edwards of GI. Physical Exam Vital Signs: Temp Pulse Resp BP Pulse Ox 98.6 F 138 H 18 115/61 100 01/01/17 12:03 01/01/17 12:03 01/01/17 12:03 01/01/17 12:03 01/01/17 12:03 Intake & Output 12/31/16 01/01/17 01/02/17 06:59 06:59 06:59 Intake Total 695 1930 0 Output Total 150 200 0 Balance 545 1730 0 Weight 68.5 kg GENERAL: No acute distress HEENT: Conjunctiva clear, nonicteric, moist mucous membranes, no JVD, midline trachea RESPIRATORY: Clear to auscultation bilaterally, no wheezes, no rhonchi CARDIAC: Regular rate and rhythm, no murmurs/gallops/rubs ABDOMEN: Soft, nondistended, nontender, positive bowel sounds, no rebound, no guarding EXTREMETIES: No edema, cyanosis, clubbing NEUROLOGIC: Alert, oriented to person/place/time, CN's grossly intact, no focal deficits SKIN: No rash, wounds PSYCH: Normal mood, normal affect Results Laboratory Results: 01/01/17 05:07 01/01/17 05:07 Sodium 139.0 Potassium 4.6 Chloride 107 Carbon Dioxide 15 L Anion Gap 17 BUN 10 Creatinine 0.75 Est GFR ( Amer) > 60 Est GFR (Non-Af Amer) > 60 Glucose 101 Calcium 9.6 Qualifiers [place]INT BEING DISCHARGED WITH ANY OF THE FOLLOWING DIAGNOSIS?: No Plan Time Spent: Less than 30 Minutes
[2017-01-01 17:45] VITALS: BP 108/63
[2017-01-01] MEDS ORDERED: SODIUM BICARBONATE 650 MG TABLET PO SCH (22:00)
== END 2017-01-01 17:58 | disposition home or self-care (01) ==
LOC: ER 16:47 → EH 12-31 00:22 → UNDOADMOB 12-31 00:22 → EH 12-31 01:28 → 4N 12-31 01:42
PROVIDERS: ADMIT Family Medicine; ATTEND Family Medicine
PROC: HZ31ZZZ Individual Counseling for Substance Abuse Treatment, Behavioral (ICD-10-PCS; principal; 2017-01-01)
DX: R11.2 Nausea with vomiting, unspecified (principal); E27.40 Unspecified adrenocortical insufficiency; Z72.89 Other problems related to lifestyle; F12.10 Cannabis abuse, uncomplicated; F17.210 Nicotine dependence, cigarettes, uncomplicated; F41.1 Generalized anxiety disorder; R10.13 Epigastric pain; R79.89 Other specified abnormal findings of blood chemistry; R10.84 Generalized abdominal pain; Z76.5 Malingerer [conscious simulation]; K21.9 Gastro-esophageal reflux disease without esophagitis; Z79.899 Other long term (current) drug therapy; Z79.52 Long term (current) use of systemic steroids; Z87.898 Personal history of other specified conditions; Z83.3 Family history of diabetes mellitus
CPT/HCPCS: 99284; 96374; 96375; 36415 ×3; 82962 ×2; 83690; 83735; 85025; 80048; 80053 ×2; 81001; 99406; G0378 ×3; J1200 ×2; J3490 ×6; J1720 ×2; J1885 ×3; S0164 ×2; J2550; J3411; J2405 ×3; J7030 ×2; S0028 ×2